=== PATIENT | female | born 1995 | race Caucasian/White ===

== ENCOUNTER → 2018-07-29 | Outpatient (REF) | payer OTHER ==
[2018-07-29 16:19] LABS: CHLAMYDIA DNA AMPLIFICATION NEGATIVE (NEGATIVE); GC DNA AMPLIFICATION NEGATIVE (NEGATIVE)
[2018-08-02 14:16] LABS: HPV HYBRID CAPTURE II Negative (Negative)
== END ==
LOC: M LAB REF 13:04
DX: Z12.4 Encounter for screening for malignant neoplasm of cervix (principal); Z11.3 Encounter for screening for infections with a predominantly sexual mode of transmission

== ENCOUNTER → 2018-08-01 | Outpatient (CLI) | payer BC, OTHER | LOC: M SMT 11:05 | DX: Z13.79 Encounter for other screening for genetic and chromosomal anomalies (principal); Z80.3 Family history of malignant neoplasm of breast; Z80.0 Family history of malignant neoplasm of digestive organs; Z80.2 Family history of malignant neoplasm of other respiratory and intrathoracic organs; Z80.49 Family history of malignant neoplasm of other genital organs | CPT/HCPCS: 36415 ==

== ENCOUNTER → 2019-10-20 | Outpatient (CLI) | payer BC, OTHER ==
[~2019-10-20] MED LIST: ERYTOIN8 OP; birth control pill PO
--- NOTE | 2019-10-20 17:35 | REP ---
Clinical: Right wrist pain Technique: AP, lateral, bilateral oblique views. Findings: The carpal bones, surrounding osseous structures, soft tissues, and joint spaces are normal. There is no evidence for acute fracture or dislocation. No subcutaneous emphysema or radiodense foreign body. Impression: Normal wrist series. No acute fracture or dislocation Electronically Signed by Kt Aparicio MD 10/20/2019 05:25 P
== END ==
LOC: M ADAMS 17:08
PROVIDERS: ATTEND Physician Assistant Medical
DX: M25.531 Pain in right wrist (principal)

== ENCOUNTER → 2024-03-27 | Outpatient (REF) | payer OTHER ==
[2024-03-27 13:29] LABS: ALBUMIN 3.7 G/DL (3.2-5.2); ALKALINE PHOSPHATASE 55 U/L (46-116); ALT/SGPT 49 U/L (7.0-40); AST/SGOT 27 U/L (<34); BILIRUBIN,TOTAL 0.3 MG/DL (0.3-1.2); BLOOD UREA NITROGEN 11 MG/DL (9-23); CALCIUM LEVEL 8.9 MG/DL (8.5-10.1); CARBON DIOXIDE LEVEL 28 MMOL/L (20-31); CHLORIDE LEVEL 105 MMOL/L (98-107); CHOLESTEROL LEVEL 161 MG/DL (<200); CHOLESTEROL RISK RATIO 2.38 (<5); GLOMERULAR FILTRATION RATE > 60.0 (>60); GLUCOSE, FASTING 76 MG/DL (60-100); HDL CHOLESTEROL 67.6 MG/DL (>40); MAGNESIUM LEVEL 1.8 MG/DL (1.8-2.4); NON-HDL-C 93.4 MG/DL; POTASSIUM SERUM 3.8 MMOL/L (3.5-5.1); SODIUM LEVEL 138 MMOL/L (136-145); TOTAL PROTEIN 6.7 G/DL (5.7-8.2); TRIGLYCERIDES LEVEL 72 MG/DL (<150)
[2024-03-27 13:30] LABS: BASO % 0.6 % (0.0-1.0); EOS # 0.1 10^3/uL (0.0-0.5); EOS % 1.3 % (0.0-3.0); HEMATOCRIT 40.9 % (36.0-47.0); LYMPH # 1.6 10^3/uL (1.5-5.0); LYMPH % 34.2 % (24.0-44.0); MEAN CORPUSCULAR HEMOGLOBIN 31.7 pg (27.0-33.0); MEAN CORPUSCULAR HGB CONC 34.2 g/dl (32.0-36.5); MEAN CORPUSCULAR VOLUME 92.7 fl (80.0-96.0); MONO # 0.3 10^3/uL (0.0-0.8); MONO % 6.9 % (2.0-8.0); NEUTROPHILS # 2.7 10^3/uL (1.5-8.5); NEUTROPHILS % 56.8 % (36.0-66.0); PLATELET COUNT, AUTOMATED 273 10^3/uL (150-450); RED BLOOD COUNT 4.41 10^6/uL (4.00-5.40); THYROID STIMULATING HORMONE 2.268 uIU/ML (0.55-4.78); TOTAL 25(OH) VITAMIN D 22.8 NG/ML (20.0-100.0); WHITE BLOOD COUNT 4.8 10^3/uL (4.0-10.0)
[2024-03-27 14:04] LABS: HEMOGLOBIN A1c 4.9 % (4.0-6.0)
== END ==
LOC: M LAB REF 12:33
PROVIDERS: ATTEND Nurse Practitioner Family
DX: E66.3 Overweight (principal); E55.9 Vitamin D deficiency, unspecified

== ENCOUNTER → 2024-03-31 | Outpatient (REF) | payer BC, OTHER ==
[2024-03-31 15:08] LABS: Trichomonas vaginalis (AMP) NOT DETECTED (NEGATIVE)
[2024-03-31 15:32] LABS: GC DNA AMPLIFICATION NEGATIVE (NEGATIVE)
[2024-04-04 15:12] LABS: HPV APTIMA Not Detected (Not Detected)
== END ==
LOC: M SFHCWAGY 09:51
PROVIDERS: ATTEND Obstetrics & Gynecology
DX: Z12.4 Encounter for screening for malignant neoplasm of cervix (principal); Z11.3 Encounter for screening for infections with a predominantly sexual mode of transmission

== ENCOUNTER → 2025-01-17 | Outpatient (CLI) | payer OTHER | LOC: M WUC 10:47 | PROVIDERS: ATTEND Nurse Practitioner Family | DX: M25.522 Pain in left elbow (principal) ==

== ENCOUNTER → 2025-01-23 | Outpatient (REF) | payer OTHER ==
[2025-01-23 14:45] LABS: ALBUMIN 3.8 G/DL (3.2-5.2); ALKALINE PHOSPHATASE 37 U/L (35-104); ALT/SGPT 14 U/L (7.0-40); AST/SGOT 9 U/L (<34); BILIRUBIN,TOTAL 0.4 MG/DL (0.3-1.2); BLOOD UREA NITROGEN 11 MG/DL (9-23); CARBON DIOXIDE LEVEL 29 MMOL/L (20-31); CHLORIDE LEVEL 106 MMOL/L (98-107); CHOLESTEROL LEVEL 160 MG/DL (<200); CHOLESTEROL RISK RATIO 2.33 (<5); GLOMERULAR FILTRATION RATE > 60.0 (>60); GLUCOSE, FASTING 74 MG/DL (60-100); HDL CHOLESTEROL 68.6 MG/DL (>40); MAGNESIUM LEVEL 1.8 MG/DL (1.8-2.4); NON-HDL-C 91.4 MG/DL; POTASSIUM SERUM 4.2 MMOL/L (3.5-5.1); SODIUM LEVEL 142 MMOL/L (136-145); TOTAL PROTEIN 6.8 G/DL (5.7-8.2); TRIGLYCERIDES LEVEL 62 MG/DL (<150)
[2025-01-23 14:46] LABS: THYROID STIMULATING HORMONE 1.315 uIU/ML (0.55-4.78)
[2025-01-23 14:49] LABS: BASO % 0.6 % (0.0-1.0); EOS # 0.1 10^3/uL (0.0-0.5); EOS % 1.8 % (0.0-3.0); HEMATOCRIT 40.4 % (36.0-47.0); HEMOGLOBIN 13.4 g/dl (12.0-15.5); LYMPH # 1.4 10^3/uL (1.5-5.0); LYMPH % 27.3 % (24.0-44.0); MEAN CORPUSCULAR HEMOGLOBIN 31.5 pg (27.0-33.0); MEAN CORPUSCULAR HGB CONC 33.2 g/dl (32.0-36.5); MEAN CORPUSCULAR VOLUME 95.1 fl (80.0-96.0); MONO # 0.4 10^3/uL (0.0-0.8); NEUTROPHILS # 3.1 10^3/uL (1.5-8.5); NEUTROPHILS % 61.9 % (36.0-66.0); PLATELET COUNT, AUTOMATED 233 10^3/uL (150-450); RED BLOOD COUNT 4.25 10^6/uL (4.00-5.40)
[2025-01-23 15:07] LABS: HEMOGLOBIN A1c 4.4 % (4.0-6.0)
== END ==
LOC: M LAB REF 12:35
PROVIDERS: ATTEND Nurse Practitioner Family
DX: E66.3 Overweight (principal)

== ENCOUNTER → 2025-02-23 | Outpatient (CLI) | payer OTHER | LOC: M RAD 14:40 | PROVIDERS: ATTEND Nurse Practitioner Family | DX: M54.2 Cervicalgia (principal) ==

== ENCOUNTER 2025-06-29 14:28 | Emergency (ER) | payer OTHER ==
[~2025-06-29] VITALS: Ht 149.9 cm; Wt 54.2 kg
[2025-06-29 15:26] LABS: BASO # 0.0 10^3/uL (0.0-0.2); BASO % 0.3 % (0.0-1.0); EOS # 0.1 10^3/uL (0.0-0.5); EOS % 0.6 % (0.0-3.0); LYMPH # 1.5 10^3/uL (1.5-5.0); LYMPH % 17.1 % (24.0-44.0); MONO # 0.4 10^3/uL (0.0-0.8); MONO % 4.4 % (2.0-8.0); NEUTROPHILS # 6.9 10^3/uL (1.5-8.5); NEUTROPHILS % 77.5 % (36.0-66.0); PLATELET COUNT, AUTOMATED 274 10^3/uL (150-450)
[2025-06-29 15:36] LABS: KETONE, URINE AUTO RFX NEGATIVE (NEGATIVE); MUCUS, URINE RFX SMALL (NEGATIVE); NITRITE, URINE AUTO RFX NEGATIVE (NEGATIVE); RBC, URINE AUTO RFX 1 /HPF (0-3); SQUAM EPITHELIAL CELL UR AURFX 13 /HPF (0-6); WBC, URINE AUTO RFX 3 /HPF (0-3)
[2025-06-29 15:41] LABS: LEUKOCYTE ESTERASE UR AUTO RFX TRACE (NEGATIVE)
[2025-06-29 15:55] LABS: ALT/SGPT 12 U/L (7.0-40); AST/SGOT 20 U/L (<34); CALCIUM LEVEL 10.2 MG/DL (8.5-10.1); CARBON DIOXIDE LEVEL 30 MMOL/L (20-31); CHLORIDE LEVEL 104 MMOL/L (98-107); CREATININE FOR GFR 0.62 MG/DL (0.55-1.30); GLOMERULAR FILTRATION RATE > 90.0 (>60); POTASSIUM SERUM 4.2 MMOL/L (3.5-5.1); SODIUM LEVEL 143 MMOL/L (136-145)
[2025-06-29 15:56] LABS: HCG, SERUM QUALITATIVE NEGATIVE (NEGATIVE)
[2025-06-29] MEDS ORDERED: ISOVUE-370 76% 100 ML VIAL As Ordered ONE (16:02)
[2025-06-29] MEDS: KETOROLAC 30 MG/ML 1 ML VIAL IV ONE (16:06)
[2025-06-29 16:39] VITALS: BP 131/92; TEMP 97; O2SAT 100
[2025-06-29] MEDS: MAGNESIUM CITRATE 300 ML BTL PO ONE (17:02)
== END 2025-06-29 17:03 | disposition home or self-care (01) ==
LOC: M ED 14:28
DX: K59.00 Constipation, unspecified (principal); Z79.3 Long term (current) use of hormonal contraceptives; Z88.0 Allergy status to penicillin; Z91.013 Allergy to seafood
CPT/HCPCS: 74177; 80048; 80076; 81001; 83690; 84703; 85025; 87086; 96374; 96375; 99284; J1885; J2765; Q9967